=== PATIENT | female | born 1965 | race Native Hawaiian/Other Pacific Islander ===

== ENCOUNTER 2016-12-17 13:15 | Outpatient (CLI) | payer BC ==
[~2016-12-17 13:15] MED LIST: LEVO0.1T6 PO
== END 2016-12-17 19:12 | disposition home or self-care (01) ==
LOC: MAMMO 13:15
DX: Z12.31 Encounter for screening mammogram for malignant neoplasm of breast (principal)
CPT/HCPCS: G0202-TC

== ENCOUNTER 2017-12-19 12:39 | Outpatient (CLI) | payer BC | END 2017-12-19 20:45 | disposition home or self-care (01) | LOC: MAMMO 12:39 | DX: Z12.31 Encounter for screening mammogram for malignant neoplasm of breast (principal); Z13.820 Encounter for screening for osteoporosis; Z78.0 Asymptomatic menopausal state ==

== ENCOUNTER 2019-01-30 15:09 | Outpatient (CLI) | payer BC | END 2019-01-30 21:48 | disposition home or self-care (01) | LOC: MAMMO 15:09 | DX: Z12.31 Encounter for screening mammogram for malignant neoplasm of breast (principal) ==

== ENCOUNTER 2020-04-13 15:30 | Outpatient (CLI) | payer BC | END 2020-04-13 22:31 | disposition home or self-care (01) | LOC: MAMMO 15:30 | DX: Z12.31 Encounter for screening mammogram for malignant neoplasm of breast (principal) ==

== ENCOUNTER 2020-09-05 08:30 | Outpatient (CLI) | payer BC, OTHER | END 2020-09-05 16:00 | disposition home or self-care (01) | LOC: INF 08:30 | PROVIDERS: ATTEND Internal Medicine | DX: Z23 Encounter for immunization (principal) | CPT/HCPCS: 96372 ==

== ENCOUNTER 2020-09-29 13:09 | Outpatient (CLI) | payer BC, OTHER | END 2020-09-29 23:59 | disposition home or self-care (01) | LOC: INF 13:09 | PROVIDERS: ATTEND Internal Medicine | DX: Z23 Encounter for immunization (principal) | CPT/HCPCS: 96372 ==

== ENCOUNTER 2021-06-19 13:13 | Outpatient (CLI) | payer BC | END 2021-06-19 19:03 | disposition home or self-care (01) | LOC: MAMMO 13:13 | PROVIDERS: ATTEND Obstetrics & Gynecology | DX: Z12.31 Encounter for screening mammogram for malignant neoplasm of breast (principal) ==

== ENCOUNTER 2022-06-26 08:34 | Outpatient (CLI) | payer BC | END 2022-06-26 22:18 | disposition home or self-care (01) | LOC: MAMMO 08:34 | PROVIDERS: ATTEND Obstetrics & Gynecology | DX: Z12.31 Encounter for screening mammogram for malignant neoplasm of breast (principal) ==